=== PATIENT | female | born 1945 | race Caucasian/White ===

== ENCOUNTER → 2023-08-24 08:26 | Outpatient (REF) | payer MEDICARE, OTHER, SELFPAY ==
[2023-08-24 09:58] LABS: % Basophils 0.3 % (0-2); % Eosinophils 2.5 % (0-6); % Immature Granulocytes 0.5 % (0-0.5); % Lymphocytes 12.2 % (20.5-51.1); % Monocytes 11.8 % (1.7-9.3); % Neutrophils 72.7 % (42.2-75.2); Absolute Eosinophils 0.2 10^3/uL (0-0.7); Absolute Lymphocytes 0.9 10^3/uL (1.2-3.4); Absolute Monocytes 0.9 10^3/uL (0.1-0.6); Absolute Neutrophils 5.3 10^3/uL (1.4-6.5); Hematocrit 38.5 % (37.0-47.0); Hemoglobin 12.6 g/dL (12.0-16.0); Mean Corp Hgb Conc. 32.7 g/dL (33.0-37.0); Mean Corpuscular Hgb 30.7 pg (27.0-31.0); Mean Corpuscular Volume 93.7 fL (81.0-99.0); Mean Platelet Volume 10.5 fL (7.4-10.4); Nucleated Red Blood Cells % 0 %; Platelet Count 227 10^3/uL (130-400); Red Blood Cell Count 4.11 10^6/uL (4.20-5.40); Red Cell Dist. Width 12.9 % (11.5-14.5); White Blood Cell Count 7.3 10^3/uL (4.8-10.8)
[2023-08-24 10:23] LABS: ALT (SGPT) 18 U/L (0-35); AST (SGOT) 30 U/L (14-36); Albumin 3.7 g/dl (3.5-5.0); Alkaline Phosphatase 68 U/L (38-126); Blood Urea Nitrogen 20 mg/dl (7-17); Direct Bilirubin 0.4 mg/dl (0.0-0.4); Total Bilirubin 0.5 mg/dl (0.2-1.3); Total Protein 6.5 g/dl (6.3-8.2)
[2023-08-24 10:51] LABS: CEA 1.41 ng/ml
== END ==
LOC: REG 08:26
PROVIDERS: ATTENDING PHYSICIAN Internal Medicine Hematology & Oncology; FAMILY PHYSICIAN Physician Assistant Medical
DX: C20 Malignant neoplasm of rectum (principal); C34.11 Malignant neoplasm of upper lobe, right bronchus or lung; K21.9 Gastro-esophageal reflux disease without esophagitis; Z15.09 Genetic susceptibility to other malignant neoplasm; R19.7 Diarrhea, unspecified
CPT/HCPCS: 36415; 80076; 82378; 82565; 84520; 85025

== ENCOUNTER → 2023-10-27 12:15 | Outpatient (REF) | payer MEDICARE, OTHER, SELFPAY | LOC: RAD 12:15 | PROVIDERS: ATTENDING PHYSICIAN Nurse Practitioner Family; FAMILY PHYSICIAN Physician Assistant Medical | DX: C20 Malignant neoplasm of rectum (principal); C34.11 Malignant neoplasm of upper lobe, right bronchus or lung; K21.9 Gastro-esophageal reflux disease without esophagitis; Z15.09 Genetic susceptibility to other malignant neoplasm; R19.7 Diarrhea, unspecified | CPT/HCPCS: 71260; Q9967 ==

== ENCOUNTER → 2023-11-16 08:37 | Outpatient (REF) | payer MEDICARE, OTHER, SELFPAY ==
[2023-11-16 09:22] LABS: % Basophils 0.1 % (0-2); % Eosinophils 1.8 % (0-6); % Immature Granulocytes 0.4 % (0-0.5); % Lymphocytes 12.9 % (20.5-51.1); % Neutrophils 72.8 % (42.2-75.2); Absolute Eosinophils 0.1 10^3/uL (0-0.7); Absolute Lymphocytes 0.9 10^3/uL (1.2-3.4); Absolute Monocytes 0.9 10^3/uL (0.1-0.6); Absolute Neutrophils 5.2 10^3/uL (1.4-6.5); Hematocrit 40.1 % (37.0-47.0); Hemoglobin 12.9 g/dL (12.0-16.0); Mean Corp Hgb Conc. 32.2 g/dL (33.0-37.0); Mean Corpuscular Hgb 29.6 pg (27.0-31.0); Nucleated Red Blood Cells % 0 %; Platelet Count 192 10^3/uL (130-400); Red Blood Cell Count 4.36 10^6/uL (4.20-5.40); Red Cell Dist. Width 13.7 % (11.5-14.5); White Blood Cell Count 7.2 10^3/uL (4.8-10.8)
[2023-11-16 09:57] LABS: ALT (SGPT) 23 U/L (0-35); AST (SGOT) 32 U/L (14-36); Albumin 4.2 g/dl (3.5-5.0); Alkaline Phosphatase 69 U/L (38-126); Blood Urea Nitrogen 30 mg/dl (7-17); Calcium 9.1 mg/dl (8.4-10.2); Carbon Dioxide 30 mmol/L (22-30); Chloride 103 mmol/L (98-107); Direct Bilirubin 0.2 mg/dl (0.0-0.4); Glucose 79 mg/dl (70-99); HDL Cholesterol 70 mg/dl; LDL Cholesterol, Calculated 92 mg/dl; Phosphorus 4.9 mg/dl (2.5-4.5); Potassium 4.5 mmol/L (3.5-5.1); Sodium 137 mmol/L (135-145); Total Bilirubin 0.5 mg/dl (0.2-1.3); Total Cholesterol 192 mg/dl (50-199); Triglyceride 154 mg/dl (10-149); Very Low Density Lipoprotein 30 mg/dl (0-30); eGFR 58.39
[2023-11-16 10:27] LABS: CEA 1.45 ng/ml; TSH 0.13 uIU/ml (0.47-4.68)
[2023-11-17 14:31] LABS: Thyroglobulin 2.2 ng/mL (1.3-31.8); Thyroglobulin Antibodies <0.9 IU/mL (0.0-4.0); Thyroid Peroxidase Ab (TPO) <0.3 IU/mL (0.0-9.0)
== END ==
LOC: REG 08:37
PROVIDERS: ATTENDING PHYSICIAN Internal Medicine Hematology & Oncology; FAMILY PHYSICIAN Physician Assistant Medical; REFERRING PHYSICIAN Internal Medicine Endocrinology, Diabetes & Metabolism
DX: C73 Malignant neoplasm of thyroid gland (principal); C20 Malignant neoplasm of rectum; C34.11 Malignant neoplasm of upper lobe, right bronchus or lung; K21.9 Gastro-esophageal reflux disease without esophagitis; Z15.09 Genetic susceptibility to other malignant neoplasm; R19.7 Diarrhea, unspecified; E03.9 Hypothyroidism, unspecified; I10 Essential (primary) hypertension; E78.2 Mixed hyperlipidemia
CPT/HCPCS: 36415; 80053; 80061; 82248; 82378; 84100; 84432; 84443; 85025; 86376; 86800

== ENCOUNTER → 2024-02-22 08:35 | Outpatient (REF) | payer MEDICARE, OTHER, SELFPAY ==
[2024-02-22 10:18] LABS: % Basophils 0.2 % (0-2); % Immature Granulocytes 0.3 % (0-0.5); % Lymphocytes 13.2 % (20.5-51.1); % Monocytes 12.5 % (1.7-9.3); % Neutrophils 71.8 % (42.2-75.2); Absolute Eosinophils 0.1 10^3/uL (0-0.7); Absolute Lymphocytes 0.8 10^3/uL (1.2-3.4); Absolute Monocytes 0.8 10^3/uL (0.1-0.6); Absolute Neutrophils 4.4 10^3/uL (1.4-6.5); Hematocrit 37.9 % (37.0-47.0); Hemoglobin 12.5 g/dL (12.0-16.0); Mean Corpuscular Hgb 30.8 pg (27.0-31.0); Mean Corpuscular Volume 93.3 fL (81.0-99.0); Mean Platelet Volume 10.9 fL (7.4-10.4); Nucleated Red Blood Cells % 0 %; Platelet Count 172 10^3/uL (130-400); Red Blood Cell Count 4.06 10^6/uL (4.20-5.40); Red Cell Dist. Width 13.2 % (11.5-14.5); White Blood Cell Count 6.2 10^3/uL (4.8-10.8)
[2024-02-22 13:58] LABS: ALT (SGPT) 19 U/L (0-35); AST (SGOT) 30 U/L (14-36); Albumin 4.1 g/dl (3.5-5.0); Alkaline Phosphatase 67 U/L (38-126); Blood Urea Nitrogen 28 mg/dl (7-17); Direct Bilirubin 0.2 mg/dl (0.0-0.4); Total Bilirubin 0.5 mg/dl (0.2-1.3); Total Protein 6.5 g/dl (6.3-8.2)
== END ==
LOC: REG 08:35
PROVIDERS: ATTENDING PHYSICIAN Internal Medicine Hematology & Oncology; FAMILY PHYSICIAN Physician Assistant Medical
DX: C20 Malignant neoplasm of rectum (principal); C34.11 Malignant neoplasm of upper lobe, right bronchus or lung; K21.9 Gastro-esophageal reflux disease without esophagitis; Z15.09 Genetic susceptibility to other malignant neoplasm; R19.7 Diarrhea, unspecified
CPT/HCPCS: 36415; 80076; 82378; 82565; 84520; 85025

== ENCOUNTER → 2024-05-16 08:54 | Outpatient (REF) | payer MEDICARE, OTHER, SELFPAY ==
[2024-05-17 22:42] LABS: Thyroglobulin Antibodies <0.9 IU/mL (0.0-4.0)
== END ==
LOC: REG 08:54
PROVIDERS: ATTENDING PHYSICIAN Internal Medicine Endocrinology, Diabetes & Metabolism; FAMILY PHYSICIAN Physician Assistant Medical
DX: C73 Malignant neoplasm of thyroid gland (principal)
CPT/HCPCS: 36415; 84432; 86800

== ENCOUNTER → 2024-05-19 09:18 | Outpatient (REF) | payer MEDICARE, OTHER, SELFPAY | LOC: HWRAD 09:18 | PROVIDERS: ATTENDING PHYSICIAN Internal Medicine Endocrinology, Diabetes & Metabolism; FAMILY PHYSICIAN Physician Assistant Medical | DX: C73 Malignant neoplasm of thyroid gland (principal) | CPT/HCPCS: 76536 ==

== ENCOUNTER → 2024-06-01 10:26 | Outpatient (REF) | payer MEDICARE, OTHER, SELFPAY | LOC: WDC 10:26 | PROVIDERS: ATTENDING PHYSICIAN Physician Assistant Medical | DX: Z12.31 Encounter for screening mammogram for malignant neoplasm of breast (principal) | CPT/HCPCS: 77063; 77067 ==

== ENCOUNTER → 2024-06-05 08:04 | Outpatient (REF) | payer MEDICARE, OTHER, SELFPAY ==
[2024-06-05 08:52] LABS: % Basophils 0.1 % (0-2); % Eosinophils 2.5 % (0-6); % Immature Granulocytes 0.6 % (0-0.5); % Lymphocytes 14.6 % (20.5-51.1); % Monocytes 11.3 % (1.7-9.3); % Neutrophils 70.9 % (42.2-75.2); Absolute Eosinophils 0.2 10^3/uL (0-0.7); Absolute Monocytes 0.8 10^3/uL (0.1-0.6); Absolute Neutrophils 4.7 10^3/uL (1.4-6.5); Hematocrit 39.6 % (37.0-47.0); Hemoglobin 12.8 g/dL (12.0-16.0); Mean Corp Hgb Conc. 32.3 g/dL (33.0-37.0); Mean Corpuscular Hgb 30.6 pg (27.0-31.0); Mean Corpuscular Volume 94.7 fL (81.0-99.0); Mean Platelet Volume 10.8 fL (7.4-10.4); Nucleated Red Blood Cells % 0 %; Platelet Count 173 10^3/uL (130-400); Red Blood Cell Count 4.18 10^6/uL (4.20-5.40); Red Cell Dist. Width 13.6 % (11.5-14.5); White Blood Cell Count 6.7 10^3/uL (4.8-10.8)
[2024-06-05 09:34] LABS: ALT (SGPT) 22 U/L (0-35); AST (SGOT) 33 U/L (14-36); Albumin 4.2 g/dl (3.5-5.0); Alkaline Phosphatase 55 U/L (38-126); Blood Urea Nitrogen 22 mg/dl (7-17); Direct Bilirubin 0.1 mg/dl (0.0-0.4); Total Bilirubin 0.4 mg/dl (0.2-1.3); Total Protein 6.8 g/dl (6.3-8.2)
[2024-06-05 19:13] LABS: CEA 1.56 ng/ml
== END ==
LOC: REG 08:04
PROVIDERS: ATTENDING PHYSICIAN Internal Medicine Hematology & Oncology; FAMILY PHYSICIAN Physician Assistant Medical
DX: C20 Malignant neoplasm of rectum (principal); C34.11 Malignant neoplasm of upper lobe, right bronchus or lung; K21.9 Gastro-esophageal reflux disease without esophagitis; Z15.09 Genetic susceptibility to other malignant neoplasm; R19.7 Diarrhea, unspecified
CPT/HCPCS: 36415; 80076; 82378; 82565; 84520; 85025

== ENCOUNTER → 2024-08-21 09:00 | Outpatient (REF) | payer MEDICARE, OTHER, SELFPAY ==
[2024-08-21 10:10] LABS: % Basophils 0.2 % (0-2); % Eosinophils 2.5 % (0-6); % Immature Granulocytes 0.2 % (0-0.5); % Lymphocytes 12.8 % (20.5-51.1); % Monocytes 10.9 % (1.7-9.3); % Neutrophils 73.4 % (42.2-75.2); Absolute Eosinophils 0.2 10^3/uL (0-0.7); Absolute Monocytes 0.9 10^3/uL (0.1-0.6); Hemoglobin 11.3 g/dL (12.0-16.0); Mean Corp Hgb Conc. 32.3 g/dL (33.0-37.0); Mean Platelet Volume 10.8 fL (7.4-10.4); Nucleated Red Blood Cells % 0 %; Platelet Count 222 10^3/uL (130-400); Red Blood Cell Count 3.89 10^6/uL (4.20-5.40); Red Cell Dist. Width 15.1 % (11.5-14.5); White Blood Cell Count 8.1 10^3/uL (4.8-10.8)
[2024-08-21 11:44] LABS: CEA 1.24 ng/ml
[2024-08-21 13:20] LABS: ALT (SGPT) 16 U/L (0-35); AST (SGOT) 25 U/L (14-36); Albumin 4.2 g/dl (3.5-5.0); Alkaline Phosphatase 65 U/L (38-126); Blood Urea Nitrogen 28 mg/dl (7-17); Direct Bilirubin 0.3 mg/dl (0.0-0.4); Total Bilirubin 0.5 mg/dl (0.2-1.3); Total Protein 6.9 g/dl (6.3-8.2)
== END ==
LOC: REG 09:00
PROVIDERS: ATTENDING PHYSICIAN Internal Medicine Hematology & Oncology
DX: C20 Malignant neoplasm of rectum (principal); C34.11 Malignant neoplasm of upper lobe, right bronchus or lung; K21.9 Gastro-esophageal reflux disease without esophagitis; Z15.09 Genetic susceptibility to other malignant neoplasm; R19.7 Diarrhea, unspecified
CPT/HCPCS: 36415; 80076; 82378; 82565; 84520; 85025

== ENCOUNTER → 2024-10-09 14:53 | Outpatient (REF) | payer MEDICARE, OTHER, SELFPAY | LOC: HWRAD 14:53 | PROVIDERS: ATTENDING PHYSICIAN Physician Assistant Medical; FAMILY PHYSICIAN Physician Assistant Medical | DX: N28.89 Other specified disorders of kidney and ureter (principal) | CPT/HCPCS: 76775 ==

== ENCOUNTER → 2024-11-14 15:20 | Outpatient (REF) | payer MEDICARE, OTHER, SELFPAY | LOC: RAD 15:20 | PROVIDERS: ATTENDING PHYSICIAN Internal Medicine Endocrinology, Diabetes & Metabolism; FAMILY PHYSICIAN Physician Assistant Medical | DX: C73 Malignant neoplasm of thyroid gland (principal) | CPT/HCPCS: 76536 ==

== ENCOUNTER → 2024-11-17 08:34 | Outpatient (REF) | payer MEDICARE, OTHER, SELFPAY ==
[2024-11-17 09:12] LABS: % Basophils 0.3 % (0-2); % Eosinophils 1.8 % (0-6); % Immature Granulocytes 0.5 % (0-0.5); % Lymphocytes 16.8 % (20.5-51.1); % Monocytes 12.1 % (1.7-9.3); % Neutrophils 68.5 % (42.2-75.2); Absolute Eosinophils 0.1 10^3/uL (0-0.7); Absolute Monocytes 0.7 10^3/uL (0.1-0.6); Absolute Neutrophils 4.2 10^3/uL (1.4-6.5); Hematocrit 37.4 % (37.0-47.0); Hemoglobin 11.9 g/dL (12.0-16.0); Mean Corp Hgb Conc. 31.8 g/dL (33.0-37.0); Mean Corpuscular Hgb 28.3 pg (27.0-31.0); Mean Platelet Volume 9.8 fL (7.4-10.4); Nucleated Red Blood Cells % 0 %; Platelet Count 258 10^3/uL (130-400); White Blood Cell Count 6.1 10^3/uL (4.8-10.8)
[2024-11-17 13:36] LABS: ALT (SGPT) 20 U/L (0-35); AST (SGOT) 25 U/L (14-36); Albumin 4.4 g/dl (3.5-5.0); Alkaline Phosphatase 63 U/L (38-126); Blood Urea Nitrogen 29 mg/dl (7-17); Direct Bilirubin 0.2 mg/dl (0.0-0.4); Total Bilirubin 0.4 mg/dl (0.2-1.3); Total Protein 7.1 g/dl (6.3-8.2)
[2024-11-17 17:21] LABS: CEA 1.07 ng/ml; TSH 0.29 uIU/ml (0.47-4.68)
[2024-11-18 12:09] LABS: Thyroglobulin 6.6 ng/mL (1.3-31.8); Thyroglobulin Antibodies <1.5 IU/mL (0.0-4.0); Thyroid Peroxidase Ab (TPO) <0.3 IU/mL (0.0-9.0)
== END ==
LOC: REG 08:34
PROVIDERS: ATTENDING PHYSICIAN Internal Medicine Hematology & Oncology; FAMILY PHYSICIAN Internal Medicine Endocrinology, Diabetes & Metabolism
DX: C20 Malignant neoplasm of rectum (principal); C34.11 Malignant neoplasm of upper lobe, right bronchus or lung; K21.9 Gastro-esophageal reflux disease without esophagitis; Z15.09 Genetic susceptibility to other malignant neoplasm; R19.7 Diarrhea, unspecified; C73 Malignant neoplasm of thyroid gland
CPT/HCPCS: 36415; 80076; 82378; 82565; 84432; 84443; 84520; 85025; 86376; 86800

== ENCOUNTER → 2025-02-22 08:36 | Outpatient (REF) | payer MEDICARE, OTHER, SELFPAY ==
[2025-02-22 09:17] LABS: Hematocrit 37.7 % (37.0-47.0); Hemoglobin 12.0 g/dL (12.0-16.0); Mean Corp Hgb Conc. 31.8 g/dL (33.0-37.0); Mean Corpuscular Volume 92.9 fL (81.0-99.0); Nucleated Red Blood Cells % 0 %; Platelet Count 176 10^3/uL (130-400); Red Cell Dist. Width 15.0 % (11.5-14.5)
[2025-02-22 10:14] LABS: ALT (SGPT) 21 U/L (0-35); AST (SGOT) 27 U/L (14-36); Albumin 4.3 g/dl (3.5-5.0); Alkaline Phosphatase 51 U/L (38-126); Blood Urea Nitrogen 23 mg/dl (7-17); Total Protein 7.0 g/dl (6.3-8.2)
[2025-02-23 19:34] LABS: CEA 1.20 ng/ml
== END ==
LOC: REG 08:36
PROVIDERS: ATTENDING PHYSICIAN Internal Medicine Hematology & Oncology; FAMILY PHYSICIAN Physician Assistant Medical
DX: C20 Malignant neoplasm of rectum (principal); C34.11 Malignant neoplasm of upper lobe, right bronchus or lung; K21.9 Gastro-esophageal reflux disease without esophagitis; Z15.09 Genetic susceptibility to other malignant neoplasm; R19.7 Diarrhea, unspecified
CPT/HCPCS: 36415; 80076; 82378; 82565; 84520; 85025

== ENCOUNTER 2025-02-27 06:18 | Day surgery (SDC) | payer MEDICARE, OTHER, SELFPAY | END 2025-02-27 11:42 | disposition home or self-care (01) | LOC: GI 06:18 | PROVIDERS: ATTENDING PHYSICIAN Internal Medicine Gastroenterology | DX: Z12.11 Encounter for screening for malignant neoplasm of colon (principal); K64.4 Residual hemorrhoidal skin tags; Z98.0 Intestinal bypass and anastomosis status; K57.30 Diverticulosis of large intestine without perforation or abscess without bleeding; K44.9 Diaphragmatic hernia without obstruction or gangrene; K31.7 Polyp of stomach and duodenum; K26.9 Duodenal ulcer, unspecified as acute or chronic, without hemorrhage or perforation; K31.A19 Gastric intestinal metaplasia without dysplasia, unspecified site; Z85.048 Personal history of other malignant neoplasm of rectum, rectosigmoid junction, and anus | CPT/HCPCS: 43239; G0105; 88305 ==

== ENCOUNTER 2025-03-17 12:03 | Inpatient (IN) | payer MEDICARE, OTHER, SELFPAY ==
[2025-03-17] VITALS (21 sets, daily range): BP systolic 85–147; BP diastolic 44–89; BMI 36.4
[2025-03-17] MEDS: NSS 1000 IV ×2 (04:40→05:52)
[2025-03-17 05:08] LABS: Hematocrit 39.3 % (37.0-47.0); Hemoglobin 12.9 g/dL (12.0-16.0); Mean Corp Hgb Conc. 32.8 g/dL (33.0-37.0); Mean Corpuscular Volume 91.0 fL (81.0-99.0); Nucleated Red Blood Cells % 0 %; Platelet Count 207 10^3/uL (130-400); Red Cell Dist. Width 13.2 % (11.5-14.5)
--- NOTE | 2025-03-17 05:14 | ED.GENMED ---
History of Present Illness
<Roxanne Rodriguez DO - Last Filed: 03/17/25 05:29>
General
Chief Complaint: Abdominal Symptoms
Source: patient and previous hospital records
Exam Limitations: none
Time Seen by Provider: 03/17/25 04:32
Nursing documentation reviewed up to this point in time: agreed with
History of Present Illness
History of Present Illness:
This is a 79-year-old woman with somewhat extensive past medical history including lung cancer status post right upper lobe lobectomy 2010. Currently maintained on immunotherapy. She has history of rectal cancer status post resection 2004. She
suffered a bowel obstruction/internal hernia requiring bowel resection, temporary ileostomy 2015 and then reversal and lysis of adhesions 2017. She has since undergone unremarkable colonoscopy 2019 and then most recently February 27, 2025.
She presents with generalized crampy abdominal pain, nausea with onset of nonbloody diarrhea since 11 PM tonight. She has passed multiple watery stools with onset of lightheadedness this morning prompting ED visit. She has not had a fever nor
chills. No close contacts with similar symptoms. No recent antibiotic use nor recent travel.
She has had remote similar symptoms related to 'food poisoning' She believes she is again suffering with food poisoning.
She has driven herself to the ED.
Past History
<Roxanne Rodriguez DO - Last Filed: 03/17/25 05:29>
Past History
ED Past Medical History: Cancer (Rectal cancer, lung cancer, thyroid), CVA (TIA), GERD (Hiatal hernia), HTN, Hypothyroidism and Other (GERD, TIA, PE, rectal cancer, lung cancer, diverticulosis. had pe 12 years ago after chemo.)
ED Past Surgical History: Bowel resection, Gynecological (Hysterectomy) and Other (right pneumonectomy, thyroidectomy)
Social History
Tobacco: Non-smoker
Alcohol: None
Drug: None
Personal:
Living: alone
Employment: Retired
Family History
Family History: Hypertension
Phy Exam
<Roxanne Rodriguez DO - Last Filed: 03/17/25 05:29>
Physical Exam
Physical Exam:
GENERAL: 79-year-old woman appears her stated age, awake and alert, pleasant, appears mildly uncomfortable but easily communicative and overall in no acute distress.
EYE: anicteric
NECK: Supple, nontender, no meningismus, no significant adenopathy.
ENT: oral mucosa is moist. No rhinorrhea.
CARDIAC: Regular rate and rhythm. no murmur.
LUNGS: Clear breath sounds bilaterally, no acute respiratory distress, no wheezes/rales/rhonchi
ABDOMEN: Rotund, soft, nondistended, mild to moderate generalized tenderness with moderate tenderness right lower quadrant, no r/g, no cvat. Hyperactive bowel sounds.
NEUROLOGICAL: Alert and oriented x3, no focal neuro deficits.
SKIN: Warm and dry, normal color, skin intact. No rash.
MUSCULOSKELETAL: No C/C/E. peripheral pulses are full and equal b/l. No palpable tenderness.
PSYCH: Normal and appropriate interaction.
Course
<Roxanne Rodriguez DO - Last Filed: 03/17/25 05:29>
Orders/Labs/Results
Orders:
Orders
03/17/25 04:48
0.9% Sodium Chloride 1000 ml [Nss] 1,000 ml IV BOLUS
03/17/25 04:57
Complete Blood Count/With Diff Urgent
Comprehensive Metabolic Panel Urgent
Lactic Acid Urgent
Lipase Urgent
03/17/25 05:22
Morphine Sulfate 4 mg IV NOW STA
03/17/25 05:23
CT Abd/pelvis W Iv Cont Urgent
Comment:
Reason For Exam: acute abd pain, N, Diarrhea
03/17/25 05:36
0.9% Sodium Chloride 1000 ml [Nss] 1,000 ml IV BOLUS
03/17/25 07:43
0.9% Sodium Chloride 500 ml [Nss] 500 ml IV BOLUS
03/17/25 09:35
Lactated Ringers [Lr] 1,000 ml IV BOLUS
Levothyroxine [Synthroid] 125 mcg PO NOW STA
03/17/25 09:53
Levothyroxine [Synthroid] 125 mcg PO NOW STA
03/17/25 Lunch
Clear Liquid
At Your Request: Full Participation
03/17/25 11:45
Admit/Transfer Patient As Directed
Co-Sign Provider:
Level of Care: Inpatient admission
Assign to:: Telemetry
Physician / Group: lovelace/hospitalist
Diagnosis: enterocoilitis/hypotension
Reason for Telemetry: Other
Other Reason for Telemetry: hypotension
Date to Stop Telemetry: 03/19/25
Time to Stop Telemetry: 11:00
Reason for Hospitalization: enterocoilitis/hypotension
Expected length of stay greater than two midnights?: Yes
ELOS- Estimated Length of Stay in days: 3
I certify the patient meets the requirements for IP care: Yes
PRN Pain Medication Management As Directed
May give lesser potent ordered pain med per pt: Yes
preference::
Protocol:: Medication orders for pain may be administered in a
manner that supports deferring to patient preference
when the pt is:
- Requesting an ordered lesser potent pain medication.
Least to most potent pain medications are defined
as: acetaminophen < NSAID < tramadol < opioids
(morphine, oxycodone, hydromorphone).
- Requesting a lesser dose of the same medication IF
ORDERED.
- Requesting a less intrusive route of administration
if both routes are prescribed by the provider (PO <
IV).
03/17/25 11:46
Code Status As Directed
Resuscitation Status: Full Code
03/17/25 11:49
Yersinia Culture-Stool Routine
HAM Source: Feces/Stool
Specimen Description:
Date Specimen was Collected: 03/17/25
Time Specimen was Collected: 12:07
03/17/25 11:50
STOOL [C difficile Antigen & Toxins] Urgent
HAM Source: Feces/Stool
Specimen Description:
Date Specimen was Collected: 03/17/25
Time Specimen was Collected: 11:49
Stool Culture Urgent
HAM Source: Feces/Stool
Specimen Description:
Date Specimen was Collected: 03/17/25
Time Specimen was Collected: 11:49
03/17/25 14:17
Acetaminophen [Tylenol] 650 mg PO Q4HPRN PRN
Bisacodyl [Dulcolax] 10 mg RECTAL [id number] PRN
Docusate W/Senna [Senokot-S] 1 tablet PO BIDPRN PRN
Lactated Ringers [Lr] 1,000 ml IV 125 mls/hr
Ondansetron Injectable [Zofran] 4 mg IV Q6HPRN PRN
Polyethylene Glycol Powder [Miralax] 17 grams PO DAILYPRN PRN
03/17/25 14:17
Activity As Directed
Activity Level: Out of Bed-Early Mobility
Vital Signs As Directed
Frequency: Per unit guidelines
DX Deep Vein Thrombosis Video Routine
03/17/25 18:00
Enoxaparin Sodium [Lovenox] 40 mg SC QPM
Midodrine [ProAmatine] 5 mg PO TID@0800,1300,1800
03/18/25 06:00
Basic Metabolic Panel IN AM
Complete Blood Count/With Diff IN AM
Magnesium IN AM
03/19/25 06:00
Basic Metabolic Panel IN AM
Complete Blood Count/With Diff IN AM
03/19/25 11:00
DC Protocol for Telemetry ONCE
Abnormal Lab Results
03/17/25
04:57
WBC 11.5 H 10^3/uL
(4.8-10.8)
MCHC 32.8 L g/dL
(33.0-37.0)
Abs Immat Gran (auto) 0.1 H 10^3/uL
(0-0.05)
Absolute Neuts (auto) 9.2 H 10^3/uL
(1.4-6.5)
Absolute Lymphs (auto) 1.0 L 10^3/uL
(1.2-3.4)
Absolute Monos (auto) 1.0 H 10^3/uL
(0.1-0.6)
Neutrophils % 80.3 H %
(42.2-75.2)
Lymphocytes % 9.1 L %
(20.5-51.1)
Chloride 109 H mmol/L
(98-107)
Carbon Dioxide 21 L mmol/L
(22-30)
BUN 26 H mg/dl
(7-17)
Creatinine 1.1 H mg/dL
(0.6-1.0)
Glucose 117 H mg/dl
(70-99)
03/17/25 04:57
03/17/25 04:57
Vital Signs
Initial and Last Documented VS:
Initial Vital Signs
Temp Pulse Resp BP
36.8 C 68 16 119/65
03/17/25 04:16 03/17/25 04:16 03/17/25 04:16 03/17/25 04:16
Last Documented Vital Signs
Temp Pulse Resp BP Pulse Ox
36.6 C 76 16 147/64 95
03/17/25 14:24 03/17/25 14:24 03/17/25 14:24 03/17/25 14:24 03/17/25 14:24
<Anil Washington MD - Last Filed: 03/17/25 15:30>
Orders/Labs/Results
Orders:
Orders
03/17/25 04:48
0.9% Sodium Chloride 1000 ml [Nss] 1,000 ml IV BOLUS
03/17/25 04:57
Complete Blood Count/With Diff Urgent
Comprehensive Metabolic Panel Urgent
Lactic Acid Urgent
Lipase Urgent
03/17/25 05:22
Morphine Sulfate 4 mg IV NOW STA
03/17/25 05:23
CT Abd/pelvis W Iv Cont Urgent
Comment:
Reason For Exam: acute abd pain, N, Diarrhea
03/17/25 05:36
0.9% Sodium Chloride 1000 ml [Nss] 1,000 ml IV BOLUS
03/17/25 07:43
0.9% Sodium Chloride 500 ml [Nss] 500 ml IV BOLUS
03/17/25 09:35
Lactated Ringers [Lr] 1,000 ml IV BOLUS
Levothyroxine [Synthroid] 125 mcg PO NOW STA
03/17/25 09:53
Levothyroxine [Synthroid] 125 mcg PO NOW STA
03/17/25 Lunch
Clear Liquid
At Your Request: Full Participation
03/17/25 11:45
Admit/Transfer Patient As Directed
Co-Sign Provider:
Level of Care: Inpatient admission
Assign to:: Telemetry
Physician / Group: lovelace/hospitalist
Diagnosis: enterocoilitis/hypotension
Reason for Telemetry: Other
Other Reason for Telemetry: hypotension
Date to Stop Telemetry: 03/19/25
Time to Stop Telemetry: 11:00
Reason for Hospitalization: enterocoilitis/hypotension
Expected length of stay greater than two midnights?: Yes
ELOS- Estimated Length of Stay in days: 3
I certify the patient meets the requirements for IP care: Yes
PRN Pain Medication Management As Directed
May give lesser potent ordered pain med per pt: Yes
preference::
Protocol:: Medication orders for pain may be administered in a
manner that supports deferring to patient preference
when the pt is:
- Requesting an ordered lesser potent pain medication.
Least to most potent pain medications are defined
as: acetaminophen < NSAID < tramadol < opioids
(morphine, oxycodone, hydromorphone).
- Requesting a lesser dose of the same medication IF
ORDERED.
- Requesting a less intrusive route of administration
if both routes are prescribed by the provider (PO <
IV).
03/17/25 11:46
Code Status As Directed
Resuscitation Status: Full Code
03/17/25 11:49
Yersinia Culture-Stool Routine
HAM Source: Feces/Stool
Specimen Description:
Date Specimen was Collected: 03/17/25
Time Specimen was Collected: 12:07
03/17/25 11:50
STOOL [C difficile Antigen & Toxins] Urgent
HAM Source: Feces/Stool
Specimen Description:
Date Specimen was Collected: 03/17/25
Time Specimen was Collected: 11:49
Stool Culture Urgent
HAM Source: Feces/Stool
Specimen Description:
Date Specimen was Collected: 03/17/25
Time Specimen was Collected: 11:49
03/17/25 14:17
Acetaminophen [Tylenol] 650 mg PO Q4HPRN PRN
Bisacodyl [Dulcolax] 10 mg RECTAL [id number] PRN
Docusate W/Senna [Senokot-S] 1 tablet PO BIDPRN PRN
Lactated Ringers [Lr] 1,000 ml IV 125 mls/hr
Ondansetron Injectable [Zofran] 4 mg IV Q6HPRN PRN
Polyethylene Glycol Powder [Miralax] 17 grams PO DAILYPRN PRN
03/17/25 14:17
Activity As Directed
Activity Level: Out of Bed-Early Mobility
Vital Signs As Directed
Frequency: Per unit guidelines
DX Deep Vein Thrombosis Video Routine
03/17/25 18:00
Enoxaparin Sodium [Lovenox] 40 mg SC QPM
Midodrine [ProAmatine] 5 mg PO TID@0800,1300,1800
03/18/25 06:00
Basic Metabolic Panel IN AM
Complete Blood Count/With Diff IN AM
Magnesium IN AM
03/19/25 06:00
Basic Metabolic Panel IN AM
Complete Blood Count/With Diff IN AM
03/19/25 11:00
DC Protocol for Telemetry ONCE
Abnormal Lab Results
03/17/25
04:57
WBC 11.5 H 10^3/uL
(4.8-10.8)
MCHC 32.8 L g/dL
(33.0-37.0)
Abs Immat Gran (auto) 0.1 H 10^3/uL
(0-0.05)
Absolute Neuts (auto) 9.2 H 10^3/uL
(1.4-6.5)
Absolute Lymphs (auto) 1.0 L 10^3/uL
(1.2-3.4)
Absolute Monos (auto) 1.0 H 10^3/uL
(0.1-0.6)
Neutrophils % 80.3 H %
(42.2-75.2)
Lymphocytes % 9.1 L %
(20.5-51.1)
Chloride 109 H mmol/L
(98-107)
Carbon Dioxide 21 L mmol/L
(22-30)
BUN 26 H mg/dl
(7-17)
Creatinine 1.1 H mg/dL
(0.6-1.0)
Glucose 117 H mg/dl
(70-99)
03/17/25 04:57
03/17/25 04:57
Vital Signs
Initial and Last Documented VS:
Initial Vital Signs
Temp Pulse Resp BP
36.8 C 68 16 119/65
03/17/25 04:16 03/17/25 04:16 03/17/25 04:16 03/17/25 04:16
Last Documented Vital Signs
Temp Pulse Resp BP Pulse Ox
36.6 C 76 16 147/64 95
03/17/25 14:24 03/17/25 14:24 03/17/25 14:24 03/17/25 14:24 03/17/25 14:24
<Roxanne Rodriguez DO - Last Filed: 03/17/25 05:29>
MDM/Problems Addressed
Differential Diagnosis Includes:
Concern for acute gastroenteritis, small bowel obstruction, colitis, diverticulitis, ischemic bowel, sepsis.
Patient noted to be somewhat hypotensive after returning from the bathroom with systolic blood pressure in the 80s, responding well to IV fluids.
IV has been established, will give IV fluid bolus.
Will check labs including lactic acid. Stool cultures.
Due to multiple prior abdominal surgeries, prior bowel obstruction/internal hernia related to adhesions will require CT abdomen pelvis with IV contrast.
Will medicate for pain with IV morphine.
MDM/Problems Addressed:
Acute abdominal pain, acute diarrhea, orthostasis/hypotension
Chronic conditions affecting care: HTN, Previous abdomnial surgery, Kidney disease and Cancer (Lung, rectal)
<Roxanne Rodriguez DO - Last Filed: 03/17/25 05:29>
*Pulse Oximetry
SaO2: 95
Oxygen Mode of Delivery: Room air
<Anil Washington MD - Last Filed: 03/17/25 15:30>
*Pulse Oximetry
Patient hypoxic: no (95%)
*Critical Care Note
Total Time (30-74mins, 75-104mins- exclusive of procedures): Not Applicable
<Anil Washington MD - Last Filed: 03/17/25 15:30>
Update Note
Update Note:
UPDATE (Anil Washington MD)
I have seen and evaluated the patient after signout and reviewed all labs and imaging.
Focused HPI: 79-year-old female with history as noted presents with diarrhea and crampy abdominal pain all night last night. Nausea but no vomiting. She said she had some dizziness on arrival as well. Similar symptoms with food poisoning in the
past.
Physical exam: Awake and alert not in distress. Soft blood pressure 102/52, heart rate in the 70s rest of vitals normal. Abdomen soft nondistended nontender.
Medical Decision Makin-year-old female presents with diarrhea with crampy abdominal pain and mild nausea last night. She did have some hypotension here. She had lab work sent off including a CBC which showed a slight leukocytosis. CMP shows
mild BLAKE with a creatinine of 1.1 and elevated BUN. Mild metabolic acidosis secondary to GI losses�no anion gap. No other clinically significant abnormalities. Currently pending CT of the abdomen pelvis and IV fluid resuscitation. She did
receive some morphine for pain control.
CT shows fluid-filled loops of small and large bowel consistent with diarrheal state/enterocolitis. Large hernia no evidence of obstruction or incarceration�hernias known to the patient. Clinical reassessment patient says she is feeling much
better. Blood pressure still soft but improving with fluids�will continue with fluid resuscitation, p.o. challenge and reassess. She has not been able to provide a stool sample but if able we will send to the lab. Likely viral versus food related.
Patient remains hypotensive blood pressure 80s over 50s despite 30 cc/kg fluid bolus. Likely continued hypovolemia, she describes large volumes of stool last night 20+ episodes of diarrhea. Will continue fluid resuscitation but this point I do
think she warrants admission for continued observation of her vital signs. Discussed case with hospitalist for admission.
ED Attending Note
<Roxanne Rodriguez, DO - Last Filed: 03/17/25 05:29>
-
Portions of this chart may have been created with voice recognition software.� Occasional wrong word or��sound alike� substitutions may have occurred due to the inherent limitations of voice recognition software.
Discharge Plan
Departure
Patient Disposition: Admit
Date of Disposition: 03/17/25
Time of Disposition: 09:32
Admit to doctor: Jenn
Presentation/result/management discussed w/ accepting MD/DO: Hospitalist
Discharge Problem:
Acute dehydration, BLAKE (acute kidney injury), Enterocolitis
Interventions
Interventions:
*Risk Screen - Suicide Last Done: 03/17/25 04:16
*General Assessment Last Done: 03/17/25 04:16
*Neglect/Abuse Screening Last Done: 03/17/25 04:16
*ED- Fall Risk Assessment Last Done: 03/17/25 04:45
*ED COVID-19 Vaccine History Last Done: 03/17/25 04:45
*Nursing Disposition Last Done: 03/17/25 13:48
[facility] Assessment Last Done: 03/17/25 04:45
Discharge Date and Time
Discharge Date/Time: 03/17/25 14:05
[2025-03-17 05:31] LABS: ALT (SGPT) 22 U/L (0-35); AST (SGOT) 27 U/L (14-36); Albumin 4.5 g/dl (3.5-5.0); Alkaline Phosphatase 58 U/L (38-126); Blood Urea Nitrogen 26 mg/dl (7-17); Calcium 9.3 mg/dl (8.4-10.2); Carbon Dioxide 21 mmol/L (22-30); Chloride 109 mmol/L (98-107); Estimated Creatinine Clearance 39 ml/min; Glucose 117 mg/dl (70-99); Lipase 74 U/L (23-300); Potassium 4.7 mmol/L (3.5-5.1); Sodium 140 mmol/L (135-145); Total Protein 7.2 g/dl (6.3-8.2); eGFR 51.75
[2025-03-17] MEDS: MORPHINE SULFATE 4 MG IV (05:52)
[2025-03-17] MEDS: NSS 500 IV (07:47)
[2025-03-17] MEDS: LR 1000 IV ×2 (09:49→14:51)
[2025-03-17] MEDS: SYNTHROID 125 MCG PO (10:48)
--- NOTE | 2025-03-17 11:50 | HPS.HSE ---
Family Physician
-
Family Physician: NOT KNOW UNKNOWN - PT DOES
Chief Complaint
-
diarrhea
History of Present Illness
79-year-old female with extensive past medical history is presenting from home with acute onset of diarrhea. Patient stated last night approximately 10 to 11 PM she started having diarrhea. States of nausea. Denies any vomiting. Of note patient
had endoscopy and colonoscopy on 02/27/2025. Post procedures postop day 3 patient has some chills. Patient states of multiple episodes of diarrhea overnight. Did not get much sleep. Denies abdominal pain. States of abdominal cramping. States
show watery with some solid stools. Denies any blood in the stool. Denies any dysuria. Feeling weak. States of feeling significantly weak and dehydrated. States she has [employer] yesterday for dinner. Also had 3 pieces of pepperoni
which per patient she was tasting throughout yesterday. No other sick contact. No recent antibiotic or recent travel. States she had episode of food poisoning in the past.
Medical History
Past Medical History
Past Medical History: Reports Other
Additional Past Medical History:
Lung cancer
Rectal cancer
history of thyroid cancer,
hypothyroidism,
hypertension
Hemorrhoids
Hyperlipidemia
Anxiety
Diverticulosis
History of pulmonary embolism
Past Surgical History: Reports Other
Additional Past Surgical History:
Partial colectomy, small bowel resection, hernia repair, colostomy creation status post takedown, lysis of lesion
Thyroidectomy
Right upper lung lobectomy
Hysterectomy
Social History
Tobacco: Non-smoker
Alcohol: None
Drug: None
Family History
Family History: Not pertinent and Other (Her mother and sister of breast cancer. Her father had prostate cancer)
Allergies / Home Medications
Medications on admission are unable to be verified or confirmed at this time.
Allergy/Medication List:
Medications on admission are unable to be verified or confirmed at this time.
Review of Systems
-
History Source: Patient
A 12 point ROS was completed and negative except as noted: Yes
Physical Exam
Vital Signs
Vital Signs
Temp Pulse Resp BP Pulse Ox
98.2 F 66 16 106/53 97
03/17/25 04:16 03/17/25 11:00 03/17/25 11:13 03/17/25 11:00 03/17/25 11:00
Physical Exam
General: Well Developed, Well Nourished and No Apparent Distress
HEENT: NormoCephalic, Moist mucous membranes and Atraumatic
Respiratory: Clear
Cardiac: S1/S2 and Regular Rhythm; No Murmur or Rub
GI: Soft, Non Tender, Non Distended and Normal Bowel Sounds; No Organomegaly
Rectal: Deferred by Provider
Musculoskeletal: No Clubbing, No Cyanosis and No Edema
Skin: No Rash
Neuro: Awake, AO x 3, No Motor Deficits and Nonfocal/grossly intact
Psych: Calm
Laboratory Results
-
03/17/25 04:57
03/17/25 04:57
Laboratory Results
Lactic Acid 1.4 mmol/L (0.7-2.0) 03/17/25 04:57
Total Bilirubin 0.5 mg/dl (0.2-1.3) 03/17/25 04:57
AST 27 U/L (14-36) 03/17/25 04:57
ALT 22 U/L (0-35) 03/17/25 04:57
Alkaline Phosphatase 58 U/L (38-126) 03/17/25 04:57
Lipase 74 U/L (23-300) 03/17/25 04:57
Impression/Plan
-
#Acute onset of diarrhea likely secondary to viral infection versus food related
#Mild leukocytosis
CT abd/pelvis-Partial colectomy with right sided ostomy noted. Fluid-filled small and large bowel loops likely reflect enterocolitis/diarrheal state. Prominent parastomal hernia is present and adjacent midline supra umbilical hernia. No definite
transition point/obstruction, although developing/low-grade obstruction at either of these hernia sites is not definitely excluded.
Cdiff negative.
Awaiting further stool studies
s/p 3500C IVF bolus on admission
BP starting to stabilize
Lactic acid wnl.
Continue clears for now
Slowly advance diet as tolerated
Continue with maintenance fluid
Midodrine with hold parameters
#Primary HTN
Hold BP meds for now as with hypotension
States takes metoprolol, lisinopril, beta-rukhsana
#Parastomal hernia
#supra umbilical hernia
Chronic. Monitor for now.
#Thyroid cancer s/p thyroidectomy
Continue with synthroid
#Lung cancer
#Rectal cancer
Follows with [facility]/Dr. Jacques
# Elevated creatinine
Trend cr for now
DVT ppx-lovenox
Full code
Awaiting med rec
I spent a total of 80 minutes with the patient or on the floor. More than 50% of this time involved counseling and coordination of care.
--- NOTE | 2025-03-17 14:43 | CM ---
manager membership reviewed patient's chart and met with patient and patient lives alone in a one story home with 2 steps to enter, patient is independent with adl's and ambulation, no dme, patient drives home when stable, no needs.
PCP: Dr. Isidro
Pharmacy: [facility] in [place]
[2025-03-17] MEDS: LOVENOX 40 MG SC (17:54)
[2025-03-18] VITALS (8 sets, daily range): BP systolic 124–155; BP diastolic 61–83; PULSE 70–73
[2025-03-18] MEDS: LR 1000 IV (00:37)
[2025-03-18 07:20] LABS: Hematocrit 33.1 % (37.0-47.0); Hemoglobin 10.5 g/dL (12.0-16.0); Mean Corp Hgb Conc. 31.7 g/dL (33.0-37.0); Mean Corpuscular Volume 91.9 fL (81.0-99.0); Nucleated Red Blood Cells % 0 %; Platelet Count 149 10^3/uL (130-400); Red Cell Dist. Width 13.4 % (11.5-14.5)
[2025-03-18 07:34] LABS: Blood Urea Nitrogen 14 mg/dl (7-17); Calcium 8.3 mg/dl (8.4-10.2); Carbon Dioxide 23 mmol/L (22-30); Chloride 113 mmol/L (98-107); Estimated Creatinine Clearance 54 ml/min; Glucose 93 mg/dl (70-99); Magnesium 1.8 mg/dl (1.6-2.3); Potassium 4.1 mmol/L (3.5-5.1); Sodium 140 mmol/L (135-145); eGFR > 60.00
[2025-03-18] MEDS: SYNTHROID 125 MCG PO (08:28)
[2025-03-18] MEDS: VITAMIN D3 (cholecalciferol) 50 MCG PO (09:33)
[2025-03-18] MEDS: OSCAL 500 + D 500 MG PO (09:33)
--- NOTE | 2025-03-18 11:48 | W.PN.HOSP.TC ---
Today's Communication/Plan
-
Check orthostatic vital sign
Monitor diet tolerance
Follow-up additional stool studies
PT eval
Assessment / Plan
Assessment / Plan
General: Well Developed, Well Nourished and No Apparent Distress
HEENT: NormoCephalic, Moist mucous membranes and Atraumatic
Respiratory: Clear
Cardiac: S1/S2 and Regular Rhythm; No Murmur or Rub
GI: Soft, Non Tender, Non Distended and Normal Bowel Sounds; No Organomegaly
Rectal: Deferred by Provider
Musculoskeletal: No Clubbing, No Cyanosis and No Edema
Skin: No Rash
Neuro: Awake, AO x 3, No Motor Deficits and Nonfocal/grossly intact
Psych: Calm
#Acute onset of diarrhea likely secondary to viral infection versus food related
#Mild leukocytosis
CT abd/pelvis-Partial colectomy with right sided ostomy noted. Fluid-filled small and large bowel loops likely reflect enterocolitis/diarrheal state. Prominent parastomal hernia is present and adjacent midline supra umbilical hernia. No definite
transition point/obstruction, although developing/low-grade obstruction at either of these hernia sites is not definitely excluded.
Cdiff negative.
Awaiting further stool studies
s/p 3500C IVF bolus on admission
BP starting to stabilize
Lactic acid wnl.
Fulls for now
Slowly advance diet as tolerated
Continue with maintenance fluid
# Presyncope likely secondary to dehydration
Check orthostatic vital sign
Blood pressure seems to have stabilized
PT eval
No chest pain no palpitations
#Primary HTN
Restart metoprolol with hold parameters
Holding lisinopril
#Parastomal hernia
#supra umbilical hernia
Chronic. Monitor for now.
#Thyroid cancer s/p thyroidectomy
Continue with synthroid
#Lung cancer
#Rectal cancer
Follows with [facility]/Dr. Reno-Castillo
# Acute kidney injury likely secondary to severe dehydration
Creatinine down trended
DVT ppx-lovenox
Full code
Anticipated Discharge: 24 - 48 hours
Subjective/Interval History
-
Date of Service: March 18, 2025
states improvement in diarrhea
intermittent abd cramps but no pain
Objective Data
-
Labs:
Laboratory Results
03/18/25
06:52
WBC 5.9
Hgb 10.5 L
Hct 33.1 L
Plt Count 149 D
Sodium 140
Potassium 4.1
Chloride 113 H
Carbon Dioxide 23
BUN 14
Creatinine 0.8
Glucose 93
Calcium 8.3 L
Vital Signs:
Vital Signs
Temp Pulse Resp BP Pulse Ox
97.5 F 63 16 148/68 98
03/18/25 08:03 03/18/25 08:03 03/18/25 08:03 03/18/25 08:33 03/18/25 08:30
I&O
03/17/25 03/18/25 03/19/25
06:59 06:59 06:59
Intake Total 720 / 720
Balance 720 / 720
[2025-03-18] MEDS: ZYRTEC 10 MG PO (12:23)
[2025-03-18] MEDS: LR IV (12:26)
--- NOTE | 2025-03-18 14:26 | PTCARENOTE ---
pt reports diarrhea improving.tolerating clear liquids, advanced to full liquids for lunch, intermittent cramping but denies pain, independent, vss, will continue to monitor.
[2025-03-18] MEDS: TOPROL XL 50 MG PO (17:06)
[2025-03-18] MEDS: LOVENOX 40 MG SC (17:09)
[2025-03-19 03:11] VITALS: BP 110/51
[2025-03-19 05:20] LABS: Hematocrit 30.3 % (37.0-47.0); Hemoglobin 10.0 g/dL (12.0-16.0); Mean Corp Hgb Conc. 33.0 g/dL (33.0-37.0); Mean Corpuscular Volume 90.7 fL (81.0-99.0); Nucleated Red Blood Cells % 0 %; Platelet Count 146 10^3/uL (130-400); Red Cell Dist. Width 13.2 % (11.5-14.5)
[2025-03-19 05:43] LABS: Blood Urea Nitrogen 11 mg/dl (7-17); Calcium 8.1 mg/dl (8.4-10.2); Carbon Dioxide 25 mmol/L (22-30); Chloride 110 mmol/L (98-107); Estimated Creatinine Clearance 54 ml/min; Glucose 84 mg/dl (70-99); Potassium 4.2 mmol/L (3.5-5.1); Sodium 139 mmol/L (135-145); eGFR > 60.00
[2025-03-19] MEDS: SYNTHROID 125 MCG PO (06:39)
[2025-03-19 07:30] VITALS: BP 147/75
[2025-03-19] MEDS: OSCAL 500 + D 500 MG PO (08:02)
[2025-03-19] MEDS: TYLENOL 650 MG PO (08:33)
--- NOTE | 2025-03-19 08:33 | CON.GI ---
Consultation
-
Date/Time Consultation Performed: 03/19/25
Performing Provider: Evan Hall MD
Reason for Consultation: enterocolitis
Medical History
Chief Complaint / HPI
Chief Complaint: diarrhea
History of Present Illness:
The patient is a 79-year-old female past medical history as noted with diarrhea. She was in her usual state of health when on Wednesday she started with multiple episodes of watery, nonbloody diarrhea along with nausea. She had multiple episodes, and
on presentation to the emergency room was dehydrated. Since then she has been feeling better, with loose stools are more formed. She denies any fever, chills, recent sick contacts or antibiotics. She did have an endoscopy and colonoscopy a couple
of weeks ago for surveillance of intestinal metaplasia of the stomach as well as personal history of rectal cancer. Biopsies were negative for intestinal metaplasia and H. pylori, colonoscopy looked good, with patent and healthy appearing
anastomoses, no inflammation or polyps. She has been having some right lower quadrant pain which was better with support and a small binder, though this has been chronic. When she was having her diarrheal illness she did not have any significant
abdominal pain. CT scan did show parastomal hernia, though no obvious incarceration or strangulation. She was having symptoms for many years which have been much better since seeing Dr. Jules and starting Metamucil.
Past Medical History
Past Medical History: Other (linnette cancer Rectal cancer history of thyroid cancer, hypothyroidism, hypertension Hemorrhoids Hyperlipidemia Anxiety Diverticulosis History of pulmonary embolism Incarcerated incisional hernia in 2016 with resection,
anastomotic leak and diverting colostomy with reversal in 2018)
Past Surgical History: Other (Partial colectomy, small bowel resection, hernia repair, colostomy creation status post takedown, lysis of lesion Thyroidectomy Right upper lung lobectomy Hysterectomy)
Social History
Tobacco: Non-Smoker
Alcohol: None
Family History
Family History: Reviewed & Not Pertinent
Allergies / Home Medications
Allergy/AdvReac Type Severity Reaction Status Date / Time
adhesive tape Allergy Itching,skin Verified 07/15/22 10:47
irritation
azithromycin Allergy Rash, Verified 07/15/22 10:47
diarrhea
Cephalosporins Allergy Diarrhea Verified 11/17/22 15:30
ciprofloxacin Allergy Unknown Verified 07/15/22 18:11
grass pollen Allergy congestion, Verified 07/15/22 18:11
headaches,
itching
latex Allergy Rash Verified 03/17/25 14:31
losartan Allergy Fatigue, Verified 07/15/22 10:47
weakness,
dizziness
mold Allergy congestion, Verified 07/15/22 18:11
headaches,
itching
sulfamethoxazole (From Allergy SWELLING Verified 07/15/22 18:11
Bactrim) LIPS
tree and shrub pollen Allergy congestion, Verified 07/15/22 18:11
headaches,
itching
trimethoprim (From Bactrim) Allergy SWELLING Verified 07/15/22 18:11
LIPS
Penicillins AdvReac Mild Rash/DIARRH Verified 07/16/22 15:09
EA
levofloxacin AdvReac heart Verified 07/16/22 14:41
palpitations
�Medication �Instructions �Recorded
multivitamin with minerals (One 1 ea PO DAILY Supplement 06/18/16
Daily Plus Minerals tablet)
rosuvastatin 5 mg tablet 10 mg PO MOWEFR High cholesterol 06/18/16
ascorbic acid (vitamin C) 500 mg 500 mg PO DAILY Supplement 01/31/17
tablet (Vitamin C)
Lactobacillus acidophilus 1 cap PO DAILY Supplement 09/01/19
(Acidophilus capsule)
coenzyme V02-eizodpy E 100 mg-100 1 cap PO QPM Supplement 09/01/19
unit capsule
lisinopril 20 mg tablet 20 mg PO DAILY Blood pressure 09/01/19
vitamin B complex 1 tab PO DAILY Supplement 09/01/19
acetaminophen 500 mg tablet 500 mg PO Q4HPRN PRN pain 09/12/19
(Tylenol Extra Strength)
spironolactone 25 mg tablet 12.5 mg PO DAILY Blood pressure 10/14/21
calcium 500 mg (as 1 tab PO DAILY Supplement 07/15/22
carbonate)-vitamin D3 10 mcg (400
unit) tablet (Calcium 500 + D)
cetirizine 10 mg tablet 10 mg PO DAILY@1200 Allergies 07/15/22
cholecalciferol (vitamin D3) 50 50 mcg PO Q48H Supplement 07/15/22
mcg (2,000 unit) tablet
levothyroxine 125 mcg tablet 125 mcg PO DAILY Thyroid 07/15/22
metoprolol succinate 25 mg 50 mg PO DAILY@1700 Blood pressure 07/15/22
tablet,extended release 24 hr
osimertinib 80 mg tablet (Tagrisso) 40 mg PO DAILY Cancer 07/15/22
Held on 07/18/22.
Instructions: Resume on
07/23/22.
loperamide 2 mg capsule 2 mg PO PRN PRN diarhea 07/18/22
Review of Systems
-
All other systems: A 12 pt ROS was Negative except as stated above in HPI
Vital Signs
Temp Pulse Resp BP Pulse Ox
97.6 F 62 14 147/75 97
03/19/25 07:30 03/19/25 07:30 03/19/25 07:30 03/19/25 07:30 03/19/25 07:30
Physical Exam
Exam
General: NAD
HEENT: MMM, anicteric, no lymphadenopathy
Heart: Regular, no murmurs
Lungs: CTA bilaterally
Abdomen: normal bowel sounds, soft, no tenderness, no rebound or guarding, no masses, bruits or ascites, right lower quadrant hernia which is soft without significant tenderness
Extremeties: no edema
Skin: no rashes
Results
WBC 5.5 10^3/uL (4.8-10.8) 03/19/25 04:37
Hgb 10.0 g/dL (12.0-16.0) L 03/19/25 04:37
Hct 30.3 % (37.0-47.0) L 03/19/25 04:37
MCV 90.7 fL (81.0-99.0) 03/19/25 04:37
Plt Count 146 10^3/uL (130-400) 03/19/25 04:37
Absolute Neuts (auto) 3.6 10^3/uL (1.4-6.5) 03/19/25 04:37
Sodium 139 mmol/L (135-145) 03/19/25 04:37
Potassium 4.2 mmol/L (3.5-5.1) 03/19/25 04:37
Chloride 110 mmol/L (98-107) H 03/19/25 04:37
Carbon Dioxide 25 mmol/L (22-30) 03/19/25 04:37
BUN 11 mg/dl (7-17) 03/19/25 04:37
Creatinine 0.8 mg/dL (0.6-1.0) 03/19/25 04:37
Calcium 8.1 mg/dl (8.4-10.2) L 03/19/25 04:37
Total Bilirubin 0.5 mg/dl (0.2-1.3) 03/17/25 04:57
AST 27 U/L (14-36) 03/17/25 04:57
ALT 22 U/L (0-35) 03/17/25 04:57
Alkaline Phosphatase 58 U/L (38-126) 03/17/25 04:57
Lipase 74 U/L (23-300) 03/17/25 04:57
Diagnostic Image Results:
CT:
IMPRESSION:
1. Partial colectomy with right sided ostomy noted. Fluid-filled small and large bowel loops likely reflect enterocolitis/diarrheal state. Prominent parastomal hernia is present and adjacent midline supra umbilical hernia. No definite transition
point/obstruction, although developing/low-grade obstruction at either of these hernia sites is not definitely excluded. Recommend continued follow-up.
Prior GI Procedures:
EGD:
02/2025:
Impression:
- Non-obstructing Schatzki ring.
- Medium-sized hiatal hernia.
- A few gastric polyps. Biopsied.
- Biopsies were taken with a cold forceps for histology in the
gastric fundus, on the greater curvature of the gastric body, on the
lesser curvature of the gastric body, at the incisura and in the
gastric antrum.
- Duodenal erosions without bleeding.
- Normal first portion of the duodenum and second portion of the
duodenum.
Colonoscopy:
02/2025:
Impression:
- Perianal skin tags found on perianal exam.
- rash in perianal area from prior radiation with thinning of skin
- Patent end-to-end colo-rectal anastomosis, characterized by
healthy appearing mucosa.
- Patent end-to-end colo-colonic anastomosis, characterized by
healthy appearing mucosa.
- Diverticulosis in the sigmoid colon and in the descending colon.
- No specimens collected.
Assessment / Plan
-
1. Diarrhea: Acute, with watery, nonbloody diarrhea, likely secondary to infectious enterocolitis. Partially obstructing parastomal hernia seems much less likely given lack of pain. Her exam is now benign, she is much improved, leukocytosis
resolved, stool studies negative so far, and her stools are more formed. At this point would advance to low residue diet and if tolerates is okay to DC, okay to restart her outpatient Metamucil.
-
-
Thank you for consultation and allowing me to participate in the patient's care. Please call the substation electrician GI physician during the after hours with any questions or concerns.
--- NOTE | 2025-03-19 09:28 | W.PN.HOSP.TC ---
Today's Communication/Plan
-
dc
Assessment / Plan
Assessment / Plan
Physical exam:
General: Well Developed, Well Nourished and No Apparent Distress
HEENT: NormoCephalic, Moist mucous membranes and Atraumatic
Respiratory: Clear
Cardiac: S1/S2 and Regular Rhythm; No Murmur or Rub
GI: Soft, Non Tender, Non Distended and Normal Bowel Sounds; No Organomegaly
Rectal: no bleeding
Musculoskeletal: No Clubbing, No Cyanosis and No Edema
Skin: No Rash
Neuro: Awake, AO x 3, No Motor Deficits and Nonfocal/grossly intact
Psych: Calm
#Acute onset of diarrhea likely secondary to viral infection caused mild colitis
#Mild leukocytosis
CT abd/pelvis-Partial colectomy with right sided ostomy noted. Fluid-filled small and large bowel loops likely reflect enterocolitis/diarrheal state. Prominent parastomal hernia is present and adjacent midline supra umbilical hernia. No definite
transition point/obstruction, although developing/low-grade obstruction at either of these hernia sites is not definitely excluded.
Cdiff negative.
She is doing better
no pain or nausea
Start LRD, I d/w GI, ok to go home if tolerates diet
# Presyncope likely secondary to dehydration
resolved
No chest pain or palpitation or sob
#Primary HTN
Resume emds
#Parastomal hernia
#supra umbilical hernia
Chronic. Monitor for now.
#Thyroid cancer s/p thyroidectomy
Continue with Synthroid
#Lung cancer
#Rectal cancer
Follows with [facility]/Dr. Jacques
# Acute kidney injury likely secondary to severe dehydration
Resolved
DVT ppx-lovenox
Full code
Total discharge time spent to see the patient, examine the patient, review data and lab results, discuss discharge plan with patient, nursing staff around 65 minutes�
Anticipated Discharge: Today
Subjective/Interval History
-
Date of Service: March 19, 2025
She feels better
no abdominal pain
Objective Data
-
Labs:
Laboratory Results
03/19/25
04:37
WBC 5.5
Hgb 10.0 L
Hct 30.3 L
Plt Count 146
Sodium 139
Potassium 4.2
Chloride 110 H
Carbon Dioxide 25
BUN 11
Creatinine 0.8
Glucose 84
Calcium 8.1 L
Vital Signs:
Vital Signs
Temp Pulse Resp BP Pulse Ox
97.6 F 62 14 147/75 97
03/19/25 07:30 03/19/25 07:30 03/19/25 07:30 03/19/25 07:30 03/19/25 07:30
I&O
03/18/25 03/19/25 03/20/25
06:59 06:59 06:59
Intake Total 720 / 720 1600 / 1600
Balance 720 / 720 1600 / 1600
[2025-03-19] MEDS: ZYRTEC 10 MG PO (10:49)
[2025-03-19 11:23] VITALS: BP 145/68
[2025-03-19 11:24] VITALS: BP 145/68; BP 152/75; PULSE 57; PULSE 58
--- NOTE | 2025-03-19 14:53 | W.DCSUMMARY ---
Discharge Summary
Discharge Data
Date of Admission: 03/17/25
Date of Discharge: 03/19/25
-
Pending Results: No
Hospital Course
79 years old female presented with diarrhea. She had multiple episodes of watery, nonbloody diarrhea along with nausea. On presentation to the emergency room, she was dehydrated. She denied any fever, chills, recent sick contacts or antibiotics.
She did have an endoscopy and colonoscopy a couple of weeks ago for surveillance of intestinal metaplasia of the stomach as well as personal history of rectal cancer. Biopsies were negative for intestinal metaplasia and H. pylori, colonoscopy
looked good, with patent and healthy appearing anastomoses, no inflammation or polyps. She has been having some right lower quadrant pain which was better with support and a small binder, though this has been chronic. When she was having her
diarrheal illness she did not have any significant abdominal pain. CT scan did show parastomal hernia, though no obvious incarceration or strangulation. She followed with Dr. Jules, given Metamucil which seemed to help. CAT scan showed fluid-
filled small and large bowel loops likely reflect enterocolitis/diarrheal state. Patient was seen by gastroenterology. Diagnosis was of diarrhea most likely secondary to infectious enterocolitis. Patient started to feel better. Stool studies
negative. GI doctor recommended to do short-term low residue diet and to continue outpatient Metamucil. Patient remained hemodynamically stable and she tolerated low residue diet. Patient was discharged home in a stable condition.
Discharge Plan
-
Patient Disposition: Home (Routine Discharge)
Discharge Diagnosis/Procedures: Enterocolitis
Dehydration
Acute kidney injury
You Were seen by GI doctor.
Condition: Fair
Diet: Low Residue
Additional Diets: Low residue diet for couple days then advance to regular diet
Referrals:
Madalyn Jules MD [Active, Gastroenterology] - in one to two weeks
UNKNOWN - PT DOES,NOT KNOW [Family Provider]
Prescriptions:
Continued
One Daily Plus Minerals 1 EACH tablet
1 ea PO DAILY
rosuvastatin 5 MG tablet
10 mg PO MOWEFR
ascorbic acid (vitamin C) [Vitamin C] 500 MG tablet
500 mg PO DAILY
lisinopril 20 MG tablet
20 mg PO DAILY
vitamin B complex 1 TAB tablet
1 tab PO DAILY
Acidophilus 1 CAP capsule
1 cap PO DAILY
coenzyme H29-mgdldih E 1 CAP capsule
1 cap PO QPM
acetaminophen [Tylenol Extra Strength] 500 MG tablet
500 mg PO Q4HPRN PRN (Reason: pain)
spironolactone 25 MG tablet
12.5 mg PO DAILY
levothyroxine 125 mcg Tablet
125 mcg PO DAILY
metoprolol succinate 25 mg tablet extended release 24 hr
50 mg PO DAILY@1700
calcium carbonate-vitamin D3 [Calcium 500 + D] 500 mg-10 mcg (400 unit) Tablet
1 tab PO DAILY
cholecalciferol (vitamin D3) 50 mcg (2,000 unit) Tablet
50 mcg PO Q48H
Tagrisso 80 mg Tablet
40 mg PO DAILY
cetirizine 10 mg Tablet
10 mg PO DAILY@1200
loperamide 2 mg Capsule
2 mg PO PRN PRN (Reason: diarhea)
Discharge Orders:
Discharge Patient (As Directed); Ordered 03/19/25
Ordered By: Nelida Palafox
Discharge Date and Time
Print Language: MONGOLIAN
[2025-03-19 15:08] VITALS: BP 137/69
== END 2025-03-19 15:13 | disposition home or self-care (01) | DRG 683 ==
LOC: 3 WEST ACU 12:03
PROVIDERS: ADMITTING PHYSICIAN Hospitalist; ATTENDING PHYSICIAN Internal Medicine; EMERGENCY PHYSICIAN Emergency Medicine; OTHER PHYSICIAN Internal Medicine Gastroenterology
DX: N17.9 Acute kidney failure, unspecified (principal); A09 Infectious gastroenteritis and colitis, unspecified; E89.0 Postprocedural hypothyroidism; I10 Essential (primary) hypertension; K21.9 Gastro-esophageal reflux disease without esophagitis; I95.9 Hypotension, unspecified; E86.0 Dehydration; F41.9 Anxiety disorder, unspecified; K42.9 Umbilical hernia without obstruction or gangrene; J30.1 Allergic rhinitis due to pollen; K43.5 Parastomal hernia without obstruction or gangrene; K44.9 Diaphragmatic hernia without obstruction or gangrene; Z86.73 Personal history of transient ischemic attack (TIA), and cerebral infarction without residual deficits; Z87.19 Personal history of other diseases of the digestive system; Z86.711 Personal history of pulmonary embolism; Z92.21 Personal history of antineoplastic chemotherapy; Z85.118 Personal history of other malignant neoplasm of bronchus and lung; Z90.2 Acquired absence of lung [part of]; Z85.048 Personal history of other malignant neoplasm of rectum, rectosigmoid junction, and anus; Z90.49 Acquired absence of other specified parts of digestive tract; Z90.710 Acquired absence of both cervix and uterus; Z85.850 Personal history of malignant neoplasm of thyroid; Z79.890 Hormone replacement therapy; Z80.42 Family history of malignant neoplasm of prostate; Z80.3 Family history of malignant neoplasm of breast; Z93.3 Colostomy status; Z88.1 Allergy status to other antibiotic agents; Z91.040 Latex allergy status; Z88.0 Allergy status to penicillin; Z88.2 Allergy status to sulfonamides; Z91.048 Other nonmedicinal substance allergy status; Z92.3 Personal history of irradiation
CPT/HCPCS: 74177; 80048; 80053; 83605; 83690; 83735; 85025; 87045; 87046; 87324; 87427; 87449; 96361; 96374; 97161; 99285; Q9967

== ENCOUNTER → 2025-04-27 08:05 | Outpatient (REF) | payer MEDICARE, OTHER, SELFPAY ==
[2025-04-27 09:02] LABS: Hematocrit 38.8 % (37.0-47.0); Hemoglobin 12.4 g/dL (12.0-16.0); Mean Corp Hgb Conc. 32.0 g/dL (33.0-37.0); Mean Corpuscular Volume 91.9 fL (81.0-99.0); Nucleated Red Blood Cells % 0 %; Platelet Count 193 10^3/uL (130-400); Red Cell Dist. Width 13.1 % (11.5-14.5)
[2025-04-27 09:32] LABS: ALT (SGPT) 20 U/L (0-35); AST (SGOT) 27 U/L (14-36); Albumin 4.3 g/dl (3.5-5.0); Alkaline Phosphatase 58 U/L (38-126); Blood Urea Nitrogen 28 mg/dl (7-17); Calcium 9.4 mg/dl (8.4-10.2); Carbon Dioxide 29 mmol/L (22-30); Chloride 104 mmol/L (98-107); Glucose 84 mg/dl (70-99); HDL Cholesterol 72 mg/dl; LDL Cholesterol, Calculated 90 mg/dl; Potassium 5.2 mmol/L (3.5-5.1); Sodium 142 mmol/L (135-145); Total Protein 7.0 g/dl (6.3-8.2); Very Low Density Lipoprotein 24 mg/dl (0-30); eGFR 51.75
[2025-04-27 09:59] LABS: CEA 1.53 ng/ml
== END ==
LOC: REG 08:05
PROVIDERS: ATTENDING PHYSICIAN Internal Medicine Hematology & Oncology; FAMILY PHYSICIAN Physician Assistant Medical
DX: C20 Malignant neoplasm of rectum (principal); C34.11 Malignant neoplasm of upper lobe, right bronchus or lung; K21.9 Gastro-esophageal reflux disease without esophagitis; Z15.09 Genetic susceptibility to other malignant neoplasm; R19.7 Diarrhea, unspecified; E78.00 Pure hypercholesterolemia, unspecified
CPT/HCPCS: 36415; 80053; 80061; 82248; 82378; 85025

== ENCOUNTER → 2025-05-01 09:00 | Outpatient (REF) | payer MEDICARE, OTHER, SELFPAY ==
[2025-05-01 11:10] LABS: Potassium 4.7 mmol/L (3.5-5.1)
== END ==
LOC: REG 09:00
PROVIDERS: ATTENDING PHYSICIAN Physician Assistant Medical
DX: E87.6 Hypokalemia (principal)
CPT/HCPCS: 36415; 84132

== ENCOUNTER → 2025-05-23 08:57 | Outpatient (REF) | payer MEDICARE, OTHER, SELFPAY ==
[2025-05-23 15:37] LABS: TSH < 0.02 uIU/ml (0.47-4.68)
[2025-05-24 16:27] LABS: Thyroglobulin 7.4 ng/mL (1.3-31.8); Thyroglobulin Antibodies <1.5 IU/mL (0.0-4.0)
== END ==
LOC: REG 08:57
PROVIDERS: ATTENDING PHYSICIAN Internal Medicine Endocrinology, Diabetes & Metabolism; FAMILY PHYSICIAN Physician Assistant Medical
DX: C73 Malignant neoplasm of thyroid gland (principal)
CPT/HCPCS: 36415; 84432; 84443; 86800

== ENCOUNTER → 2025-05-30 14:56 | Outpatient (REF) | payer MEDICARE, OTHER, SELFPAY | LOC: HWRAD 14:56 | PROVIDERS: ATTENDING PHYSICIAN Internal Medicine Endocrinology, Diabetes & Metabolism; FAMILY PHYSICIAN Physician Assistant Medical | DX: C73 Malignant neoplasm of thyroid gland (principal) | CPT/HCPCS: 76536 ==

== ENCOUNTER → 2025-06-07 11:44 | Outpatient (REF) | payer MEDICARE, OTHER, SELFPAY | LOC: WDC 11:44 | PROVIDERS: ATTENDING PHYSICIAN Physician Assistant Medical | DX: Z12.31 Encounter for screening mammogram for malignant neoplasm of breast (principal) | CPT/HCPCS: 77063; 77067 ==